=== PATIENT | female | born 1950 | race Caucasian/White ===

== ENCOUNTER 2016-03-09 10:02 | Inpatient (IN) | payer OTHER, MEDICARE ==
[~2016-03-09] VITALS: Ht 160 cm; Wt 90.3 kg
[2016-03-09] VITALS (9 sets, daily range): BP systolic 131–151; BP diastolic 71–91; PULSE 76–90; TEMP 36.2–36.6; O2SAT 92–96; Ht 160 cm; Wt 90.3 kg
[~2016-03-09 10:02] MED LIST: ALBU1NEB10 INH; BRVIN INH; CHOL100027 PO; FEXO1TAB46 PO; FORMCAP INH; NSNN50; OMEP20CA9 PO; OXGN; ROPI1TAB PO; TRIA37.5 PO; ZAFI1TAB10 PO; [UNRECOGNIZED DRUG - OTHER] INH
[2016-03-09] MEDS ORDERED: SODIUM CHLORIDE 0.9% 1000ML 1,000 ML IV STA (10:37)
[2016-03-09] MEDS ORDERED: SODIUM CHLORIDE 0.9% 1000ML 500 ML IV STA (10:37)
[2016-03-09] MEDS ORDERED: FLUT0.15 NAE (10:46)
[2016-03-09] MEDS ORDERED: MOME200A INH (10:47)
[2016-03-09] MEDS ORDERED: VNTHFA/IN INH (10:48)
[2016-03-09 10:51] LABS: BASO % 0.2 %; BASO ABS # 0.03 K/uL (0-0.2); COMPLETE YES; EOS % 0.2 %; HEMATOCRIT 37.9 % (37-47); IG% 0.3 %; LYMPH % 9.7 %; LYMPH ABS # 1.59 K/uL (1.2-3.4); MEAN CELL VOLUME 88.3 fL (80-100); MEAN CORPUSCULAR HEMOGLOBIN 30.1 pg (25-34); MEAN PLATELET VOLUME 9.4 fL (7.4-10.4); MONO % 8.3 %; NEUT % 81.3 %; PLATELET COUNT 196 K/uL (130-400); RED BLOOD COUNT 4.29 M/uL (4.2-5.4); WHITE BLOOD COUNT 16.47 K/uL (4.8-10.8)
[2016-03-09 10:58] LABS: BUN/CREATININE RATIO 10.5 (10-20); CALCIUM 8.9 mg/dl (8.5-10.1); CREATININE 0.88 mg/dl (0.60-1.20); POTASSIUM 3.8 mmol/L (3.5-5.1)
[2016-03-09] MEDS ORDERED: OPTIRAY 320 IV PRN (11:00)
[2016-03-09 11:01] LABS: ALB/GLOB RATIO 0.8 (0.9-2)
[2016-03-09 11:04] LABS: URINE APPEARANCE CLEAR (CLEAR); URINE BILIRUBIN NEG (NEG); URINE COLOR YELLOW; URINE EPITHELIAL CELL AUTO 20-30 /lpf (0-5); URINE NITRITE NEG (NEG); URINE PH 6.5 (4.5-7.5); URINE SPECIFIC GRAVITY 1.016 (1.000-1.030); UROBILINOGEN NEG (NEG); ZZUR CULT IF INDIC CLEAN CATCH YES
[2016-03-09 11:05] LABS: MANUAL MICROSCOPIC REQUIRED? NO; REVIEW REQ? NO
--- NOTE | 2016-03-09 11:45 | DIAGNOSTIC IMAGING REPORT ---
CT ABD/PELVIS IV CONTRAST ONLY CLINICAL HISTORY: Right lower quadrant abdominal pain COMPARISON STUDY: 02/14/2012 TECHNIQUE: Following the IV administration of 92 mL of Optiray-320, CT scan of the abdomen and pelvis was performed from the lung bases to the proximal femurs. Images are reviewed in the axial, sagittal, and coronal planes. IV contrast was administered without complication. CT DOSE: 888.28 mGy.cm FINDINGS: Lower chest: There is a 17 mm pulmonary nodule within the lingula. This nodule measuring 1 cm in January 2012. There are dependent atelectatic changes. Liver: There is a 26 mm hypodense lesion within the right hepatic lobe. This remains unchanged from January 2012 There is mild hepatic steatosis. Gallbladder: Unremarkable. Spleen: The spleen is the upper limits of normal in size measuring 11 cm. Pancreas: Unremarkable. Adrenal glands: Unremarkable. Kidneys: There is an 8 mm right renal hypodensity, likely representing a cyst. Bowel: There are no transition zones indicate bowel obstruction. There is an inflammatory process in the right lower quadrant with a suspected small abscess in the right adnexal region measuring approximately 3 cm. The sigmoid colon is adjacent to this and there are several diverticula present. There is mild stranding of the surrounding fat. The appendix also extensive this level. There is free intraperitoneal air. While likely representing ruptured diverticulitis, a ruptured appendicitis could appear similar. Peritoneum: There is no significant free fluid. There is free air is described above. Vasculature: The abdominal aorta is normal in course and caliber. Adenopathy: There is a mildly prominent lymph node at the level the right cardiophrenic angle unchanged the prior January 2012 study Pelvic viscera: The uterus is enlarged consistent with fibroids. At least one fibroid is partially calcified.. Skeletal structures: No destructive osseous lesions are seen. IMPRESSION: 1. Free intraperitoneal air consistent with a ruptured viscus 2. Right lower quadrant inflammatory process with a small abscess in the right adnexal region. While likely representing ruptured diverticulitis, a ruptured appendicitis could appear similar 3. Slowly growing 17 mm pulmonary nodule within the lingula. This nodule measured 1 cm January 2012. A slowly growing neoplasm is the diagnosis of exclusion 4. Multiple uterine fibroids 5. Surgical consultation is recommended 6. Stable 26 mm hypodensity within the right hepatic lobe. Electronically signed by: Tim Gar M.D. 03/09/2016 11:43 AM Dictated Date/Time: 03/09/2016 11:28 AM
[2016-03-09] MEDS ORDERED: ONDANSETRON INJ 2 MG/ML 2 ML VIAL IV STA (11:59)
[2016-03-09] MEDS ORDERED: HYDROmorphone INJ 2 MG/ML SYR/VIAL IV STA (11:59)
[2016-03-09] MEDS ORDERED: PIPERACILLIN/TAZOBACTAM 4.5 GM/100ML D5W IV STA (12:01)
[2016-03-09] MEDS ORDERED: DEXAMETHASONE SOD INJ 4 MG/ML VIAL ONE (13:09)
[2016-03-09] MEDS ORDERED: ONDANSETRON INJ 2 MG/ML 2 ML VIAL ONE (13:09)
[2016-03-09] MEDS ORDERED: GLYCOPYRROLATE INJ 0.2 MG/ML VIAL ONE (13:09)
[2016-03-09] MEDS ORDERED: ROCURONIUM BROMIDE 10 MG/ML 5 ML VIAL ONE ×2 (13:09→14:56)
[2016-03-09] MEDS ORDERED: FENTANYL CITRATE INJ 50 MCG/1 ML 2 ML VIAL ONE (13:09)
[2016-03-09] MEDS ORDERED: NEOSTIGMINE METHYLSULFATE 5 MG/5 ML SYR ONE (13:09)
[2016-03-09] MEDS ORDERED: PROPOFOL IV EMULSION 10 MG/ML 20 ML VIAL IV ONE (13:09)
[2016-03-09] MEDS ORDERED: MIDAZOLAM HCL 1 MG/ML 2ML VIAL ONE (13:09)
[2016-03-09] MEDS ORDERED: LIDOCAINE HCL 2% 2 ML VIAL (20MG/ML) ONE (13:09)
--- NOTE | 2016-03-09 13:13 | History and Physical ---
History & Physical Date & Time of Service: Mar 09, 2016 at 13:01 Chief Complaint: Right Lwr Abd. Pain Primary Care Physician: Marie Lundberg M.D. History of Present Illness Source: patient, family Carol Mccollum is a 65 year old female who presents to ER for 4 days abdominal pain, with nausea, no vomiting, the pain is located at RLQ, pt denies fever, no diarrhea, last BM today, pt had colonoscopy done last year. which was normal finding per -pt. pt denies chest pain, no SOB, Past Medical/Surgical History Medical Problems: (1) Asthma Status: Chronic (2) Hernia Status: Resolved (3) Hypertension Status: Chronic (4) Pneumonia Status: Resolved Family History FHx: lung disease Hypertension Social History Smoking Status: Never Smoker Smokeless Tobacco Use: No Alcohol Use: none Drug Use: none Marital Status: Occupational Status: retired Immunizations History of Influenza Vaccine: No History of Tetanus Vaccine?: No History of Pneumococcal: Yes Pneumococcal Date: Jan 25, 2010 History of Hepatitis B Vaccine: No Allergies Coded Allergies: Codeine (Verified Allergy, Unknown, UNKNOWN, 03/09/16) Fluticasone (Verified Allergy, Unknown, UNKNOWN, 03/09/16) Morphine (Verified Allergy, Unknown, UNKNOWN, 03/09/16) Salmeterol (Verified Allergy, Unknown, UNKNOWN, 03/09/16) Sulfa Drugs (Verified Allergy, Unknown, UNKNOWN, 03/09/16) Home Medications Scheduled Albuterol Hfa (Ventolin Hfa), 2-4 PUFFS INH Q6H Albuterol Sulf (Albuterol Sulfate 0.083% For Inh), 3 ML INH Q4HR PRN Arformoterol Tartrate (Brovana 15MCG/2ML Soln), 15 MCG INH BIDR Cholecalciferol (Vitamin D 1000 Unit), 1,000 INTER.UNIT PO DAILY Fexofenadine Hcl (Ghazala), 180 MG PO DAILY Fluticasone Propionate (Nasal) (Flonase Allergy Relief), 1 SPRAY ZONIA DAILY Mometasone Furoate-Formoterol (Dulera 200/5 Mcg), 2 PUFFS INH BID Omeprazole (Prilosec), 20 MG PO BID Zafirlukast (Accolate), 20 MG PO BID Review of Systems Constitutional: No chills, No fatigue, No fever, No problem reported, No sweats , No weakness, No weight loss Eyes: No diplopia, No discharge, No eye pain, No problem reported, No redness, No worsening of vision ENT: No dental problems, No hearing loss, No nasal symptoms, No problem reported, No sore throat, No tinnitus, No trouble swallowing, No unusual epistaxis Respiratory: No cough, No dyspnea at rest, No dyspnea on exertion, No hemoptysis, No problem reported, No shortness of breath, No sputum, No wheezing Cardiovascular: No PND, No chest pain, No claudication, No edema, No orthopnea , No palpitations, No problem reported Abdomen: + nausea, + pain Musculoskeletal: No calf pain, No joint pain, No muscle pain, No problem reported, No swelling Neurologic: No balance problems, No memory loss, No numbness/tingling, No paralysis, No problem reported, No vertigo, No weakness Psychiatric: No anhedonism, No anxiety, No depression symptoms, No insomnia, No problem reported, No substance abuse Hematologic / Lymphatic: No abnormal bleeding/bruising, No clotting problems, No night sweats, No problem reported, No swollen lymph nodes Physical Exam Vital Signs Date Time Temp Pulse Resp B/P Pulse Ox O2 Delivery O2 Flow Rate FiO2 03/09/16 11:54 80 18 134/68 95 Room Air 03/09/16 10:05 37.2 101 17 164/88 95 Room Air General Appearance: WD/WN, + mild distress Head: normocephalic Eyes: normal inspection, PERRL ENT: normal ENT inspection, hearing grossly normal Neck: supple, no adenopathy, thyroid normal, no JVD Respiratory/Chest: chest non-tender, lungs clear, normal breath sounds Cardiovascular: regular rate, rhythm, no edema, no gallop, no JVD, no murmur Abdomen/GI: + tenderness, + distended, + guarding Extremities/Musculoskelatal: normal inspection, no calf tenderness, normal capillary refill Neurologic/Psych: 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 II-XII nml as tested, no motor/sensory deficits Skin: normal color, warm/dry Diagnostics Laboratory Results Results Past 24 Hours Test 03/09/16 10:20 03/09/16 10:30 Range/Units White Blood Count 16.47 4.8-10.8 K/uL Red Blood Count 4.29 4.2-5.4 M/uL Hemoglobin 12.9 12.0-16.0 g/dL Hematocrit 37.9 37-47 % Mean Corpuscular Volume 88.3 80-100 fL Mean Corpuscular Hemoglobin 30.1 25-34 pg Mean Corpuscular Hemoglobin Concent 34.0 32-36 g/dl Platelet Count 196 130-400 K/uL Mean Platelet Volume 9.4 7.4-10.4 fL Neutrophils (%) (Auto) 81.3 % Lymphocytes (%) (Auto) 9.7 % Monocytes (%) (Auto) 8.3 % Eosinophils (%) (Auto) 0.2 % Basophils (%) (Auto) 0.2 % Neutrophils # (Auto) 13.40 1.4-6.5 K/uL Lymphocytes # (Auto) 1.59 1.2-3.4 K/uL Monocytes # (Auto) 1.37 0.11-0.59 K/uL Eosinophils # (Auto) 0.03 0-0.5 K/uL Basophils # (Auto) 0.03 0-0.2 K/uL RDW Standard Deviation 45.0 36.4-46.3 fL RDW Coefficient of Variation 13.9 11.5-14.5 % Immature Granulocyte % (Auto) 0.3 % Immature Granulocyte # (Auto) 0.05 0.00-0.02 K/uL Sodium Level 139 136-145 mmol/L Potassium Level 3.8 3.5-5.1 mmol/L Chloride Level 105 98-107 mmol/L Carbon Dioxide Level 23 21-32 mmol/L Anion Gap 11.0 3-11 mmol/L Blood Urea Nitrogen 9 7-18 mg/dl Creatinine 0.88 0.60-1.20 mg/dl Est Creatinine Clear Calc Drug Dose 69.8 ml/min Estimated GFR () 81.0 Estimated GFR (Non- 69.9 BUN/Creatinine Ratio 10.5 10-20 Random Glucose 162 70-99 mg/dl Calcium Level 8.9 8.5-10.1 mg/dl Total Bilirubin 0.8 0.2-1 mg/dl Aspartate Amino Transf (AST/SGOT) 10 15-37 U/L Alanine Aminotransferase (ALT/SGPT) 16 12-78 U/L Alkaline Phosphatase 104 45-117 U/L Total Protein 7.2 6.4-8.2 gm/dl Albumin 3.3 3.4-5.0 gm/dl Globulin 3.9 2.5-4.0 gm/dl Albumin/Globulin Ratio 0.8 0.9-2 Lipase 117 73-393 U/L Urine Color YELLOW Urine Appearance CLEAR CLEAR Urine pH 6.5 4.5-7.5 Urine Specific [place] 1.016 1.000-1.030 Urine Protein TRACE NEG Urine Glucose (UA) 1+ NEG Urine Ketones NEG NEG Urine Occult Blood TRACE NEG Urine Nitrite NEG NEG Urine Bilirubin NEG NEG Urine Urobilinogen NEG NEG Urine Leukocyte Esterase LARGE NEG Urine WBC (Auto) >30 0-5 /hpf Urine RBC (Auto) 0-4 0-4 /hpf Urine Hyaline Casts (Auto) 5-10 0-5 /lpf Urine Epithelial Cells (Auto) 20-30 0-5 /lpf Urine Bacteria (Auto) NEG NEG Microbiology Results 03/09/16 Urine Culture, Received Pending Diagnostic Radiology CT scan Abd + pelvis-IMPRESSION: 1. Free intraperitoneal air consistent with a ruptured viscus 2. Right lower quadrant inflammatory process with a small abscess in the right adnexal region. While likely representing ruptured diverticulitis, a ruptured appendicitis could appear similar 3. Slowly growing 17 mm pulmonary nodule within the lingula. This nodule measured 1 cm January 2012. A slowly growing neoplasm is the diagnosis of exclusion 4. Multiple uterine fibroids 5. Surgical consultation is recommended 6. Stable 26 mm hypodensity within the right hepatic lobe. Impression Assessment and Plan IMP intra- abdominal Free air, porforation of bowel ( diverticulitis)or ( appendicitis) Plan: I recommend to do exploratory laparostomy, possible bowel resection, stoma , D/W benefits, risks and alternatives of procedure, the risks- infection, bleeding, injury bowel, sepsis, multiple organs failure, DVT, [place], Stroke, , pt and her family member understood, they agree with the plan, I answered all questions, IV antibiotic, EKG, IV fluid.
--- NOTE | 2016-03-09 13:33 | History & Physical Bridge Note ---
H&P Re-Evaluation Bridge Note: I have examined the patient, reviewed the History & Physical and in the interval since the performance of the History & Physical I have noted the following changes of clinical significance: No changes noted
[2016-03-09] MEDS ORDERED: ATROPINE SULFATE 0.1 MG/ML 5ML SYR IV PRN (13:45)
[2016-03-09] MEDS ORDERED: ONDANSETRON INJ 2 MG/ML 2 ML VIAL IV PRN ×2 (13:45→17:15)
[2016-03-09] MEDS ORDERED: EpHEDrine SULFATE INJ 50 MG/ML AMP IV PRN (13:45)
[2016-03-09] MEDS ORDERED: PHENYLEPHRINE 100MCG/ML 5ML SYR IV PRN (13:45)
[2016-03-09] MEDS ORDERED: HYDROmorphone INJ 2 MG/ML SYR/VIAL ONE (14:45)
[2016-03-09] MEDS ORDERED: DOXYCYCLINE HYCLATE 100 MG in DEXTROSE 5% 100ML IV ONE (15:15)
--- NOTE | 2016-03-09 15:15 | EMERGENCY ROOM VISIT NOTE ---
History Report prepared by Gonzales: Lizz Hillman Under the Supervision of: Dr. Kenroy Way M.D. First contact with patient: 10:34 Chief Complaint: ABDOMINAL PAIN Stated Complaint: RIGHT LWR ABD. PAIN Nursing Triage Summary: PT c/o right lower abdominal pain and constipation x 3 days. Denies urinary symptoms, n/v. History of Present Illness The patient is a 65 year old female who presents to the Emergency Room with complaints of constant right lower quadrant abdominal pain starting about 3 days ago. She reports pain radiation to the right groin. The pain intermittently becomes sharp. At its worst, she rates a pain intensity of 8-9/ 10. She started having constipation a few days ago. She has been drinking Milk of Magnesia with relief. She also started having a fever of 102 degrees Fahrenheit this morning. The patient denies any back/flank pain, urinary symptoms, diarrhea, or any other complaints. She was referred to the Emergency Room by her PCP for concerns about appendicitis. She had similar symptoms about a year and a half ago. She has a history of hernia where her current pain is located. She thinks she has diverticula. Source of History: patient Onset: about 3 days ago Position: abdomen (RLQ) Symptom Intensity: 8-9/10 at its worst Quality: sharp Timing: constant Associated Symptoms: + fevers, No back pain, No diarrhea, No urinary symptoms Review of Systems See HPI for pertinent positives & negatives. A total of 10 systems reviewed and were otherwise negative. Past Medical & Surgical Medical Problems: (1) abdominal pain, ovary abscess on right (2) Asthma (3) Hernia (4) Hypertension (5) Pneumonia Family History FHx: lung disease Hypertension Social History Smoking Status: Never Smoker Alcohol Use: none Drug Use: none Marital Status: Housing Status: lives with family Occupation Status: retired Current/Historical Medications Scheduled Albuterol Hfa (Ventolin Hfa), 2-4 PUFFS INH Q6H Albuterol Sulf (Albuterol Sulfate 0.083% For Inh), 3 ML INH Q4HR PRN Arformoterol Tartrate (Brovana 15MCG/2ML Soln), 15 MCG INH BIDR Cholecalciferol (Vitamin D 1000 Unit), 1,000 INTER.UNIT PO DAILY Fexofenadine Hcl (Ghazala), 180 MG PO DAILY Fluticasone Propionate (Nasal) (Flonase Allergy Relief), 1 SPRAY ZONIA DAILY Mometasone Furoate-Formoterol (Dulera 200/5 Mcg), 2 PUFFS INH BID Omeprazole (Prilosec), 20 MG PO BID Zafirlukast (Accolate), 20 MG PO BID Allergies Coded Allergies: Codeine (Verified Allergy, Unknown, UNKNOWN, 03/09/16) Fluticasone (Verified Allergy, Unknown, UNKNOWN, 03/09/16) Morphine (Verified Allergy, Unknown, UNKNOWN, 03/09/16) Salmeterol (Verified Allergy, Unknown, UNKNOWN, 03/09/16) Sulfa Drugs (Verified Allergy, Unknown, UNKNOWN, 03/09/16) Physical Exam Vital Signs Date Time Temp Pulse Resp B/P Pulse Ox O2 Delivery O2 Flow Rate FiO2 03/09/16 13:16 37.7 93 18 135/74 96 03/09/16 11:54 80 18 134/68 95 Room Air 03/09/16 10:05 37.2 101 17 164/88 95 Room Air Physical Exam GENERAL: Patient is in no acute distress. HEENT: No acute trauma, normocephalic atraumatic, mucous membranes moist, no nasal congestion, no scleral icterus. NECK: No stridor, no adenopathy, no meningismus, trachea is midline. LUNGS: Clear to auscultation bilaterally, no wheeze, no rhonchi, breath sounds equal. HEART: Without murmurs gallops or rubs, regular rate and rhythm. ABDOMEN: Soft, moderate tenderness in the right lower quadrant and pelvis, bowel sounds positive, no hernias, no peritonitis. EXTREMITIES: No cyanosis or edema, full range of motion of all the joints without pain or difficulty, no signs for acute trauma. NEUROLOGIC: Oriented x 3, no acute motor or sensory deficits, no focal weakness. SKIN: No rash, no jaundice, no diaphoresis. Medical Decision & Procedures ER Provider Diagnostic Interpretation: CT results as stated below per my review and radiologist interpretation: CT ABD/PELVIS IV CONTRAST ONLY CLINICAL HISTORY: Right lower quadrant abdominal pain COMPARISON STUDY: 02/14/2012 TECHNIQUE: Following the IV administration of 92 mL of Optiray-320, CT scan of the abdomen and pelvis was performed from the lung bases to the proximal femurs. Images are reviewed in the axial, sagittal, and coronal planes. IV contrast was administered without complication. CT DOSE: 888.28 mGy.cm FINDINGS: Lower chest: There is a 17 mm pulmonary nodule within the lingula. This nodule measuring 1 cm in January 2012. There are dependent atelectatic changes. Liver: There is a 26 mm hypodense lesion within the right hepatic lobe. This remains unchanged from January 2012 There is mild hepatic steatosis. Gallbladder: Unremarkable. Spleen: The spleen is the upper limits of normal in size measuring 11 cm. Pancreas: Unremarkable. Adrenal glands: Unremarkable. Kidneys: There is an 8 mm right renal hypodensity, likely representing a cyst. Bowel: There are no transition zones indicate bowel obstruction. There is an inflammatory process in the right lower quadrant with a suspected small abscess in the right adnexal region measuring approximately 3 cm. The sigmoid colon is adjacent to this and there are several diverticula present. There is mild stranding of the surrounding fat. The appendix also extensive this level. There is free intraperitoneal air. While likely representing ruptured diverticulitis, a ruptured appendicitis could appear similar. Peritoneum: There is no significant free fluid. There is free air is described above. Vasculature: The abdominal aorta is normal in course and caliber. Adenopathy: There is a mildly prominent lymph node at the level the right cardiophrenic angle unchanged the prior January 2012 study Pelvic viscera: The uterus is enlarged consistent with fibroids. At least one fibroid is partially calcified.. Skeletal structures: No destructive osseous lesions are seen. IMPRESSION: 1. Free intraperitoneal air consistent with a ruptured viscus 2. Right lower quadrant inflammatory process with a small abscess in the right adnexal region. While likely representing ruptured diverticulitis, a ruptured appendicitis could appear similar 3. Slowly growing 17 mm pulmonary nodule within the lingula. This nodule measured 1 cm January 2012. A slowly growing neoplasm is the diagnosis of exclusion 4. Multiple uterine fibroids 5. Surgical consultation is recommended 6. Stable 26 mm hypodensity within the right hepatic lobe. Electronically signed by: Tim Gar M.D. 03/09/2016 11:43 AM Dictated Date/Time: 03/09/2016 11:28 AM Laboratory Results 03/09/16 10:20 Red Blood Count 4.29, Mean Corpuscular Volume 88.3, Mean Corpuscular Hemoglobin 30.1, Mean Corpuscular Hemoglobin Concent 34.0, Mean Platelet Volume 9.4, Neutrophils (%) (Auto) 81.3, Lymphocytes (%) (Auto) 9.7, Monocytes (%) (Auto) 8.3, Eosinophils (%) (Auto) 0.2, Basophils (%) (Auto) 0.2, Neutrophils # (Auto) 13.40, Lymphocytes # (Auto) 1.59, Monocytes # (Auto) 1.37, Eosinophils # (Auto) 0.03, Basophils # (Auto) 0.03 03/09/16 10:20 Test 03/09/16 10:20 03/09/16 10:30 White Blood Count 16.47 K/uL (4.8-10.8) Red Blood Count 4.29 M/uL (4.2-5.4) Hemoglobin 12.9 g/dL (12.0-16.0) Hematocrit 37.9 % (37-47) Mean Corpuscular Volume 88.3 fL (80-100) Mean Corpuscular Hemoglobin 30.1 pg (25-34) Mean Corpuscular Hemoglobin Concent 34.0 g/dl (32-36) Platelet Count 196 K/uL (130-400) Mean Platelet Volume 9.4 fL (7.4-10.4) Neutrophils (%) (Auto) 81.3 % Lymphocytes (%) (Auto) 9.7 % Monocytes (%) (Auto) 8.3 % Eosinophils (%) (Auto) 0.2 % Basophils (%) (Auto) 0.2 % Neutrophils # (Auto) 13.40 K/uL (1.4-6.5) Lymphocytes # (Auto) 1.59 K/uL (1.2-3.4) Monocytes # (Auto) 1.37 K/uL (0.11-0.59) Eosinophils # (Auto) 0.03 K/uL (0-0.5) Basophils # (Auto) 0.03 K/uL (0-0.2) RDW Standard Deviation 45.0 fL (36.4-46.3) RDW Coefficient of Variation 13.9 % (11.5-14.5) Immature Granulocyte % (Auto) 0.3 % Immature Granulocyte # (Auto) 0.05 K/uL (0.00-0.02) Anion Gap 11.0 mmol/L (3-11) Est Creatinine Clear Calc Drug Dose 69.8 ml/min Estimated GFR () 81.0 Estimated GFR (Non- 69.9 BUN/Creatinine Ratio 10.5 (10-20) Calcium Level 8.9 mg/dl (8.5-10.1) Total Bilirubin 0.8 mg/dl (0.2-1) Aspartate Amino Transf (AST/SGOT) 10 U/L (15-37) Alanine Aminotransferase (ALT/SGPT) 16 U/L (12-78) Alkaline Phosphatase 104 U/L (45-117) Total Protein 7.2 gm/dl (6.4-8.2) Albumin 3.3 gm/dl (3.4-5.0) Globulin 3.9 gm/dl (2.5-4.0) Albumin/Globulin Ratio 0.8 (0.9-2) Lipase 117 U/L (73-393) Urine Color YELLOW Urine Appearance CLEAR (CLEAR) Urine pH 6.5 (4.5-7.5) Urine Specific [place] 1.016 (1.000-1.030) Urine Protein TRACE (NEG) Urine Glucose (UA) 1+ (NEG) Urine Ketones NEG (NEG) Urine Occult Blood TRACE (NEG) Urine Nitrite NEG (NEG) Urine Bilirubin NEG (NEG) Urine Urobilinogen NEG (NEG) Urine Leukocyte Esterase LARGE (NEG) Urine WBC (Auto) >30 /hpf (0-5) Urine RBC (Auto) 0-4 /hpf (0-4) Urine Hyaline Casts (Auto) 5-10 /lpf (0-5) Urine Epithelial Cells (Auto) 20-30 /lpf (0-5) Urine Bacteria (Auto) NEG (NEG) Laboratory results reviewed by me. Medications Administered Medications (Trade) Dose Ordered Sig/Jovanny Route Start Time Stop Time Status Last Admin Dose Admin Sodium Chloride 500 ml @ 999 mls/hr Q31M STAT IV 03/09/16 10:37 03/09/16 11:07 DC 03/09/16 10:47 999 MLS/HR Sodium Chloride (Nss 1000ml) 1,000 ml @ 200 mls/hr Q5H STAT IV 03/09/16 10:37 03/09/16 14:59 DC 03/09/16 11:47 200 MLS/HR Hydromorphone HCl (Dilaudid Inj) 0.5 mg NOW STAT IV 03/09/16 11:59 03/09/16 12:01 DC 03/09/16 12:10 0.5 MG Ondansetron HCl (Zofran Inj) 4 mg NOW STAT IV 03/09/16 11:59 03/09/16 12:01 DC 03/09/16 12:09 4 MG Piperacillin Sod/ Tazobactam Sod (Zosyn Iv) 4.5 gm NOW STAT IV 03/09/16 12:01 03/09/16 12:02 DC 03/09/16 12:10 4.5 GM ED Course 1034: The patient was evaluated in room A02. A complete history and physical exam was performed. 1037: Sodium Chloride 1000 ml @ 200 mls/hr IV, Sodium Chloride 500 ml @ 999 mls/ hr IV 1159: The patient is requesting pain medication. Zofran Inj 4 mg IV, Dilaudid Inj 0.5 mg IV 1201: Zosyn IV 4.5 gm IV 1211: I discussed the patient's case with Dr. Rand, general surgeon with [facility]. He will evaluate the patient and give me his recommendations. 1250: I discussed the patient's case with Dr. Rand. He will take the patient to the OR. Medical Decision Differential diagnosis includes but is not limited to appendicitis or diverticulitis, musculoskeletal pain, hernia, biliary colic, renal colic, UTI, pyelonephritis. There is a moderate leukocytosis at around 16,000, this could be consistent with infection. No concerning anemia. No significant electrolyte abnormality, kidney failure, hepatitis or pancreatitis. Urinalysis shows possible infection versus contamination. Urine culture is pending. Abdominal and pelvis CT shows some free intraperitoneal air with inflammation/abscess in the right lower quadrant consistent with diverticulitis or even appendicitis. The patient received IV saline, IV Dilaudid, IV Zofran. She was given IV Zosyn. The patient is stable at present. I discussed my findings with her. I talked with the on-call surgeon. The patient is being taken to the operating room. Case management is aware. Consults Time Called: 1202 Consulting Physician: Dr. Rand, general surgeon with [facility] Returned Call: 1211 I discussed the patient's case with Dr. Rand, general surgeon with [facility]. He will evaluate the patient and give me his recommendations. Impression Primary Impression: Rupture of bowel Additional Impression: Intra-abdominal abscess Scribe Attestation The scribe's documentation has been prepared under my direction and personally reviewed by me in its entirety. I confirm that the note above accurately reflects all work, treatment, procedures, and medical decision making performed by me. Departure Information Dispostion Being Evaluated By Surgeon Referrals Marie Lundberg M.D. (PCP) Patient Instructions My [facility] Problem Qualifiers
--- NOTE | 2016-03-09 16:28 | [facility] Post Operative Brief Note ---
Immediate Operative Summary Operative Date Mar 09, 2016. Pre-Operative Diagnosis Intra- abdominal Free air, perforation of bowel, suspected diverticulitis or appendicitis Post-Operative Diagnosis RIGHT OVARIAN abscess Procedure(s) Performed Exploratory Laparotomy,RIGHT SALPINOOPHERECTOMY,APPENDECTOMY. Surgeon Dr. Rand Aviation Project Engineer Surgeon(s) Dr. Marquez Carlisle Estimated Blood Loss 50ml Findings right ovary abscess, appendicitis Specimens Microbiology #1: Intraabdominal abscess Routine C/S, Anerobic/Aerobic, Fungal/Yeast, Gram Stain Sent to lab routine at 1419 Permanent Specimens A:RIGHT OVARY AND TUBE B:APPENDIX Drains 10 mm JOSIE Anesthesia General Complication(s) None Disposition Recovery Room / PACU
[2016-03-09] MEDS: HYDROmorphone INJ 2 MG/ML SYR/VIAL IV PRN ×4 (16:47→17:02)
--- NOTE | 2016-03-09 17:48 | Anesthesiology Progress Note ---
Anesthesia Post Op Note Date & Time Mar 09, 2016 at 17:42 Vital Signs Pain Intensity: 3 Vital Signs Past 12 Hours Date Time Temp Pulse Resp B/P Pulse Ox O2 Delivery O2 Flow Rate FiO2 03/09/16 17:25 69 14 146/77 93 Nasal Cannula 4 03/09/16 17:15 76 14 146/74 92 Nasal Cannula 4 03/09/16 17:05 84 17 149/79 92 Nasal Cannula 4 03/09/16 16:55 84 16 154/75 91 Nasal Cannula 4 03/09/16 16:47 83 14 96 Diffusion Mask 11.0 03/09/16 16:45 87 17 161/83 97 Mask 10 03/09/16 16:35 87 17 174/105 93 Mask 10 03/09/16 16:27 36.0 91 17 155/76 89 Mask 10 03/09/16 13:16 37.7 93 18 135/74 96 03/09/16 11:54 80 18 134/68 95 Room Air 03/09/16 10:05 37.2 101 17 164/88 95 Room Air Notes Mental Status: alert / awake / arousable, participated in evaluation Pt Amnestic to Procedure: Yes Nausea / Vomiting: adequately controlled Pain: adequately controlled Airway Patency, RR, SpO2: stable & adequate BP & HR: stable & adequate Hydration State: stable & adequate Anesthetic Complications: no major complications apparent The patient is a 65 y/o female s/p exploratory laparotomy, right salpingoopherectomy and appendectomy. The patient has a history of COPD and her oxygen saturation on room air preoperatively was 95%. In recovery, she initially required a Duoneb treatment for wheezing and her oxygen saturation was only 90% on 10 L FM. She is more alert now and her oxygen saturation has improved to 94% on 4L NC. She has and abdominal binder in place, but is able to take 1750cc volume with the incentive spirometer. Her lungs are clear to auscultation bilaterally. She will be transferred to the floor where she will have continuous pulse oximetry.
[2016-03-09] MEDS ORDERED: PIPERACILL/TAZOBAC CONSULT ACTIVE PRN (18:45)
[2016-03-09] MEDS: D5W AND 1/2NSS + 20MEQ KCL 1,000 ML IV SCH (19:00)
[2016-03-09] MEDS ORDERED: METRONIDAZOLE / NSS 500 MG in PREMIXED NSS 0 ML IV SCH (19:00)
[2016-03-09] MEDS: METRONIDAZOLE / NSS 500 MG in PREMIXED NSS 100 ML IV SCH (19:04)
--- NOTE | 2016-03-09 19:10 | OPERATIVE REPORT ---
DATE OF OPERATION: 03/09/2016 PREOPERATIVE DIAGNOSES: Intra-abdominal free air, suspected perforation of bowel, suspected diverticulitis or appendicitis. POSTOPERATIVE DIAGNOSIS: Right ovarian cyst with right tubo-ovarian abscess. PROCEDURE PERFORMED: Right salpingo-oophorectomy. Please see Dr. Rand's note for his portion of the surgery. SURGEON: Dr. Carlisle. PROCESSING ENGINEER: Dr. Rnad. ESTIMATED BLOOD LOSS: 50 mL. OPERATIVE FINDINGS: As I scrubbed into the OR, the patient was already opened via vertical laparotomy incision. Upon exploration, it was noted that the right ovary and tube were severely inflamed, suspect a tubo-ovarian abscess. Dr. aRnd stated that there was pus that he irrigated prior to my arrival. There was a small defect in the bowel adjacent to it, which Dr. Rand did suture. Please see his notes for that portion. The right infundibulopelvic ligament was clamped with a Nallely clamp and suture ligated with 0 Vicryl suture, continued inferiorly through the uteroovarian ligament which was also clamped with Nallely clamp and suture ligated with 0 Vicryl suture. The specimen was then removed and sent to pathology. The lower pelvis was then copiously irrigated with warm saline solution. At this point, my portion of the procedure was found to be complete. Please see Dr. Rand's for the rest of his operative report. DRAINS: Quintanilla to gravity. ANESTHESIA: General. COMPLICATIONS: None. I attest to the content of the Intraoperative Record and any orders documented therein. Any exceptions are noted below. [email or web address]
[2016-03-09] MEDS: ALBUT/IPRATROP 3MG/0.5MG NEB 3 ML VIAL INH SCH ×2 (20:25→23:55)
[2016-03-09] MEDS: PIPERACILL/TAZOBAC IV 3.375 GM in DEXTROSE 5% 100ML 100 ML IV SCH (20:27)
--- NOTE | 2016-03-09 22:56 | OPERATIVE REPORT ---
DATE OF OPERATION: 03/09/2016 PREOPERATIVE DIAGNOSES: Intraabdominal free air, right lower quadrant pain. POSTOPERATIVE DIAGNOSIS: Right ovarian abscess. OPERATION: Right ovary and tube resection, appendectomy, exploratory laparotomy. SURGEON: Dr. Eulogio Rand. LUNG SPLITTER: Dr. Marquez Carlisle. ANESTHESIA: General. ESTIMATED BLOOD LOSS: About 50 mL IV FLUIDS: 1500 mL FINDINGS: Right ovarian abscess, early appendicitis. COMPLICATION: None. DRAIN: JOSIE drain x1. SPECIMEN: Abscess fluid sent for culture. INDICATION FOR THE PROCEDURE: This is a 65-year-old female who presented to ED with 4 days history of right lower quadrant pain with some nausea, no vomiting. The patient denied any fever. However, the patient had a CT scan showing free air in intraabdominal cavity and possible perforated bowel inflammation in the right lower quadrant. After I reviewed the patient in the ER, I decided to take the patient to the OR and do exploratory laparotomy for possible bowel obstruction, possible stoma. I did talk to the patient and the patient's family member about the benefit, the risk, alternate procedure. I indicated the risks may include but not limited such as bleeding, infection, sepsis, multiple organ failure, DVT, myocardial infarction, stroke, incisional hernia, abscess, even . They understand and the patient signed informed consent and I answered all questions. DETAILS OF PROCEDURE: We brought the patient to the OR, put the patient in sitting position. The patient received SCDs on bilateral legs to prevent DVT. Also, the patient received 2 grams Ancef IV for prophylactic antibiotic. The patient received general anesthesia without difficulty. The patient received Quintanilla catheter insertion. The abdomen was properly prepped and draped in routine sterile fashion. After a timeout, I made a medial incision and opened fascia, opened peritoneum under direct vision. Once we exposed, the abdomen showed normal findings of stomach, small-bowel, large-bowel, liver; however, we found the patient had an abscess on the right ovary. We opened the abscess, suctioned the fluid and sent the fluid for culture. The ovary and the tube were significantly inflamed. At this moment, I decided to call the ATTENDING PATHOLOGIST doctor, Dr. Marquez Carlisle who came in and decided to remove right side ovary and tube. He did the procedure, rechecked, no active bleeding. Also, I found the patient had some inflammation on the appendix. I decided to take out the appendix. I mobilized the appendix at its base, used Endo TAMMIE staple 45 mm, transected the base of the appendix, rechecked no active bleeding and no leaks, and specimen was sent to pathology. Then, we exposed the small-bowel and large-bowel, and no significant perforation and no leak at this moment. I decided to put one 10 mm JOSIE drain in the pelvic area. We used normal saline flush in the abdomen and suctioned all the fluid out. I used 2-0 silk to fix the JOSIE on the skin of abdominal wall and then we closed the abdominal fascial layer by using #1 PDS continuous running and closed subcutaneous layer by using 2-0 Vicryl, closed skin by using staple. We put the dressing on and the patient tolerated the procedure well. Urine output was 300 mL during the procedure. All instrument, needle and sponge count correct x2 at the end of the case. Specimen sent to pathology. After the procedure, I did talk to the patient and family member about the OR finding and procedure we did, they understand. The patient transferred to recovery room in stable condition. I attest to the content of the Intraoperative Record and any orders documented therein. Any exceptions are noted below. ADOLFO
[2016-03-10] VITALS (11 sets, daily range): BP systolic 116–152; BP diastolic 69–86; PULSE 82–103; TEMP 36.3–37.1; O2SAT 88–94
[2016-03-10] MEDS: ALBUT/IPRATROP 3MG/0.5MG NEB 3 ML VIAL INH SCH ×6 (02:02→23:41)
[2016-03-10] MEDS: METRONIDAZOLE / NSS 500 MG in PREMIXED NSS 100 ML IV SCH ×3 (03:10→19:12)
[2016-03-10] MEDS: PIPERACILL/TAZOBAC IV 3.375 GM in DEXTROSE 5% 100ML 100 ML IV SCH ×3 (04:18→21:24)
[2016-03-10] MEDS: D5W AND 1/2NSS + 20MEQ KCL 1,000 ML IV SCH ×2 (05:36→15:41)
[2016-03-10] MEDS ORDERED: CEFAZOLIN IV 2,000 MG/60 ML D5W IV ONE (06:00)
[2016-03-10 08:12] LABS: BASO % 0.1 %; BASO ABS # 0.01 K/uL (0-0.2); COMPLETE YES; HEMATOCRIT 35.4 % (37-47); IG% 0.2 %; LYMPH % 6.4 %; MEAN CELL VOLUME 87.2 fL (80-100); MEAN CORPUSCULAR HEMOGLOBIN 29.3 pg (25-34); MEAN CORPUSCULAR HGB CONC 33.6 g/dl (32-36); MEAN PLATELET VOLUME 9.4 fL (7.4-10.4); MONO % 7.6 %; NEUT % 85.7 %; PLATELET COUNT 202 K/uL (130-400); RED BLOOD COUNT 4.06 M/uL (4.2-5.4); WHITE BLOOD COUNT 13.97 K/uL (4.8-10.8)
[2016-03-10] MEDS: HYDROmorphone INJ 1 MG/ML SYR IV PRN ×3 (09:53→23:47)
--- NOTE | 2016-03-10 12:15 | Surgery Progress Note ---
Surgery Progress Note Date of Service Mar 10, 2016. Subjective Post OP Day: 1 + feeling well F/U S/P Right salpingo-oophorectomy, appendectomy, POD 1, pt is doing fine, no nausea, no vomiting, good control abdominal pain, not pass gas yet, JOSIE clear liquid, Objective Vital Signs: Date Time Temp Pulse Resp B/P Pulse Ox O2 Delivery O2 Flow Rate FiO2 03/10/16 11:30 88 18 93 Room Air 03/10/16 09:00 Room Air 03/10/16 08:40 90 Room Air 03/10/16 08:10 36.4 88 18 130/82 89 Room Air 03/10/16 07:52 103 18 90 Room Air 03/10/16 04:14 36.9 94 16 116/69 94 Nasal Cannula 2.0 03/09/16 23:55 84 18 96 Nasal Cannula 3.0 03/09/16 23:50 Nasal Cannula 3.0 03/09/16 23:14 36.5 90 20 131/77 92 Nasal Cannula 2.0 03/09/16 21:05 36.6 88 14 137/76 93 Nasal Cannula 4.0 03/09/16 20:10 80 18 96 Nasal Cannula 3.0 03/09/16 20:01 36.2 78 14 135/77 93 Nasal Cannula 4.0 03/09/16 19:05 36.2 80 16 137/71 92 Nasal Cannula 4.0 03/09/16 18:35 36.2 76 16 138/78 94 Nasal Cannula 4.0 03/09/16 18:05 94 Nasal Cannula 4.0 03/09/16 18:05 36.5 84 18 151/91 94 Nasal Cannula 4.0 03/09/16 18:05 93 Nasal Cannula 4.0 03/09/16 18:05 94 Nasal Cannula 4.0 03/09/16 17:55 70 14 129/64 93 Nasal Cannula 4 03/09/16 17:45 65 15 134/62 92 Nasal Cannula 4 03/09/16 17:35 36.9 75 18 146/76 92 Nasal Cannula 4 03/09/16 17:25 69 14 146/77 93 Nasal Cannula 4 03/09/16 17:15 76 14 146/74 92 Nasal Cannula 4 03/09/16 17:05 84 17 149/79 92 Nasal Cannula 4 03/09/16 16:55 84 16 154/75 91 Nasal Cannula 4 03/09/16 16:47 83 14 96 Diffusion Mask 11.0 03/09/16 16:45 87 17 161/83 97 Mask 10 03/09/16 16:35 87 17 174/105 93 Mask 10 03/09/16 16:27 36.0 91 17 155/76 89 Mask 10 03/09/16 13:16 37.7 93 18 135/74 96 General Appearance: WD/WN Head: normocephalic Neck: supple Respiratory/Chest: chest non-tender, lungs clear, normal breath sounds Cardiovascular: regular rate, rhythm, no edema, no gallop, no JVD, no murmur Abdomen: non distended, soft, + tenderness Incision(s): clean, dry, intact Extremities: normal range of motion, non-tender, normal inspection Laboratory Results: Results Past 24 Hours Test 03/10/16 07:46 Range/Units White Blood Count 13.97 4.8-10.8 K/uL Red Blood Count 4.06 4.2-5.4 M/uL Hemoglobin 11.9 12.0-16.0 g/dL Hematocrit 35.4 37-47 % Mean Corpuscular Volume 87.2 80-100 fL Mean Corpuscular Hemoglobin 29.3 25-34 pg Mean Corpuscular Hemoglobin Concent 33.6 32-36 g/dl Platelet Count 202 130-400 K/uL Mean Platelet Volume 9.4 7.4-10.4 fL Neutrophils (%) (Auto) 85.7 % Lymphocytes (%) (Auto) 6.4 % Monocytes (%) (Auto) 7.6 % Eosinophils (%) (Auto) 0.0 % Basophils (%) (Auto) 0.1 % Neutrophils # (Auto) 11.97 1.4-6.5 K/uL Lymphocytes # (Auto) 0.90 1.2-3.4 K/uL Monocytes # (Auto) 1.06 0.11-0.59 K/uL Eosinophils # (Auto) 0.00 0-0.5 K/uL Basophils # (Auto) 0.01 0-0.2 K/uL RDW Standard Deviation 43.9 36.4-46.3 fL RDW Coefficient of Variation 13.7 11.5-14.5 % Immature Granulocyte % (Auto) 0.2 % Immature Granulocyte # (Auto) 0.03 0.00-0.02 K/uL Microbiology Results 03/09/16 Gram Stain - Final, Resulted 03/09/16 Bacterial Culture - Preliminary, Resulted Gram Negative Bacilli Gram Negative Bacilli#2 Assessment & Plan IMP S/P Right salpingo-oophorectomy, appendectomy POD1, pt is doing fine, out of bed, with paraprofessional education assistant resume home meds, SCD on repeat labs in AM I update information to pt and family members, they understood, I answered all questions,
[2016-03-10] MEDS ORDERED: NURSING VERBAL MED ORDER ONE (12:45)
[2016-03-10] MEDS ORDERED: PANTOprazole INJ 40 MG in SYRINGE 0 ML IV ONE (13:30)
[2016-03-10] MEDS ORDERED: ALBUTEROL HFA INHALER 8.5 GM INH PRN (13:30)
[2016-03-10] MEDS: ARFORMOTEROL TART 15MCG/2ML VIAL INH SCH (20:40)
[2016-03-10] MEDS ORDERED: MOMETASONE FUROATE-FORMOTEROL (DULERA) 200mcg/5mcg per inh INH SCH (21:00)
[2016-03-10] MEDS: PANTOprazole SOD 40 MG TAB PO SCH (21:00)
[2016-03-10] MEDS: MOMETASONE FUROATE-FORMOTEROL (DULERA) 200mcg/5mcg per inh INH SCH (21:23)
[2016-03-10] MEDS: ZAFIRLUKAST TAB 20 MG TAB PO SCH (21:23)
[2016-03-11] MEDS: D5W AND 1/2NSS + 20MEQ KCL 1,000 ML IV SCH ×3 (01:15→20:37)
[2016-03-11] MEDS: ALBUT/IPRATROP 3MG/0.5MG NEB 3 ML VIAL INH SCH ×3 (01:49→12:00)
[2016-03-11] MEDS: METRONIDAZOLE / NSS 500 MG in PREMIXED NSS 100 ML IV SCH ×3 (02:27→19:30)
[2016-03-11] MEDS: PIPERACILL/TAZOBAC IV 3.375 GM in DEXTROSE 5% 100ML 100 ML IV SCH ×3 (03:43→20:36)
[2016-03-11 06:34] LABS: BASO % 0.2 %; BASO ABS # 0.02 K/uL (0-0.2); COMPLETE YES; EOS % 2.1 %; HEMATOCRIT 36.1 % (37-47); IG% 0.4 %; LYMPH % 15.9 %; LYMPH ABS # 1.69 K/uL (1.2-3.4); MEAN CELL VOLUME 89.1 fL (80-100); MEAN CORPUSCULAR HEMOGLOBIN 29.1 pg (25-34); MEAN CORPUSCULAR HGB CONC 32.7 g/dl (32-36); MEAN PLATELET VOLUME 9.5 fL (7.4-10.4); MONO % 8.6 %; NEUT % 72.8 %; PLATELET COUNT 213 K/uL (130-400); RED BLOOD COUNT 4.05 M/uL (4.2-5.4); WHITE BLOOD COUNT 10.62 K/uL (4.8-10.8)
[2016-03-11 07:03] LABS: BUN/CREATININE RATIO 14.3 (10-20); CALCIUM 8.4 mg/dl (8.5-10.1); CREATININE 0.88 mg/dl (0.60-1.20); POTASSIUM 3.9 mmol/L (3.5-5.1)
[2016-03-11 07:05] LABS: ALB/GLOB RATIO 0.8 (0.9-2)
[2016-03-11 07:16] VITALS: BP 155/85; PULSE 85; TEMP 36.9; O2SAT 90
[2016-03-11] MEDS ORDERED: BISACODYL 10 MG SUPP PR STA (07:50)
--- NOTE | 2016-03-11 07:55 | Surgery Progress Note ---
Surgery Progress Note Date of Service Mar 11, 2016. Subjective Post OP Day: 2 + feeling well pt is doing better, no N/V, no fever, not pass gas yet, Objective Vital Signs: Date Time Temp Pulse Resp B/P Pulse Ox O2 Delivery O2 Flow Rate FiO2 03/11/16 07:16 36.9 85 16 155/85 90 Room Air 03/10/16 23:41 86 18 93 Room Air 03/10/16 23:40 Nasal Cannula 2.0 03/10/16 23:29 37.1 85 20 152/80 88 Room Air 03/10/16 20:41 85 18 90 Room Air 03/10/16 16:50 36.8 82 18 138/86 90 Room Air 03/10/16 15:40 Room Air 03/10/16 14:31 88 18 93 Room Air 03/10/16 13:30 36.3 90 18 130/86 88 Room Air 03/10/16 11:30 88 18 93 Room Air 03/10/16 09:00 Room Air 03/10/16 08:40 90 Room Air 03/10/16 08:10 36.4 88 18 130/82 89 Room Air Physical Exam: JOSIE drainage General Appearance: WD/WN Head: normocephalic Neck: supple, no adenopathy Respiratory/Chest: chest non-tender, lungs clear, normal breath sounds Cardiovascular: regular rate, rhythm, no edema, no gallop, no JVD Abdomen: normal bowel sounds, non tender, soft Incision(s): clean, dry, intact Extremities: normal range of motion, non-tender, normal inspection Laboratory Results: Results Past 24 Hours Test 03/11/16 06:14 Range/Units White Blood Count 10.62 4.8-10.8 K/uL Red Blood Count 4.05 4.2-5.4 M/uL Hemoglobin 11.8 12.0-16.0 g/dL Hematocrit 36.1 37-47 % Mean Corpuscular Volume 89.1 80-100 fL Mean Corpuscular Hemoglobin 29.1 25-34 pg Mean Corpuscular Hemoglobin Concent 32.7 32-36 g/dl Platelet Count 213 130-400 K/uL Mean Platelet Volume 9.5 7.4-10.4 fL Neutrophils (%) (Auto) 72.8 % Lymphocytes (%) (Auto) 15.9 % Monocytes (%) (Auto) 8.6 % Eosinophils (%) (Auto) 2.1 % Basophils (%) (Auto) 0.2 % Neutrophils # (Auto) 7.74 1.4-6.5 K/uL Lymphocytes # (Auto) 1.69 1.2-3.4 K/uL Monocytes # (Auto) 0.91 0.11-0.59 K/uL Eosinophils # (Auto) 0.22 0-0.5 K/uL Basophils # (Auto) 0.02 0-0.2 K/uL RDW Standard Deviation 45.9 36.4-46.3 fL RDW Coefficient of Variation 13.9 11.5-14.5 % Immature Granulocyte % (Auto) 0.4 % Immature Granulocyte # (Auto) 0.04 0.00-0.02 K/uL Sodium Level 140 136-145 mmol/L Potassium Level 3.9 3.5-5.1 mmol/L Chloride Level 106 98-107 mmol/L Carbon Dioxide Level 24 21-32 mmol/L Anion Gap 10.0 3-11 mmol/L Blood Urea Nitrogen 13 7-18 mg/dl Creatinine 0.88 0.60-1.20 mg/dl Est Creatinine Clear Calc Drug Dose 69.8 ml/min Estimated GFR () 81.0 Estimated GFR (Non- 69.9 BUN/Creatinine Ratio 14.3 10-20 Random Glucose 200 70-99 mg/dl Calcium Level 8.4 8.5-10.1 mg/dl Total Bilirubin 0.4 0.2-1 mg/dl Aspartate Amino Transf (AST/SGOT) 5 15-37 U/L Alanine Aminotransferase (ALT/SGPT) 15 12-78 U/L Alkaline Phosphatase 85 45-117 U/L Total Protein 6.6 6.4-8.2 gm/dl Albumin 2.9 3.4-5.0 gm/dl Globulin 3.7 2.5-4.0 gm/dl Albumin/Globulin Ratio 0.8 0.9-2 Assessment & Plan IMP S/P Right salpingo-oophorectomy, appendectomy POD1, pt is doing fine, D/C NGT out of bed, with chemist assistant resume home meds, SCD on dulcolax 10mg MD will F/U IMP S/P Right salpingo-oophorectomy, appendectomy POD1, pt is doing fine, out of bed, with chemist assistant resume home meds, SCD on repeat labs in AM I update information to pt and family members, they understood, I answered all questions,
[2016-03-11] MEDS: ARFORMOTEROL TART 15MCG/2ML VIAL INH SCH (08:00)
[2016-03-11] MEDS: FLUTICASONE PROPIONATE NA SPR 16 GM BTL SCH (09:00)
[2016-03-11] MEDS: ZAFIRLUKAST TAB 20 MG TAB PO SCH ×2 (09:09→20:36)
[2016-03-11] MEDS: CHOLECALCIFEROL 1000 INTER.UNIT TAB PO SCH (09:09)
[2016-03-11] MEDS: PANTOprazole SOD 40 MG TAB PO SCH ×2 (09:09→20:37)
[2016-03-11] MEDS: FEXOFENADINE HCL 180 MG TAB PO SCH (09:09)
[2016-03-11] MEDS: MOMETASONE FUROATE-FORMOTEROL (DULERA) 200mcg/5mcg per inh INH SCH ×2 (09:10→20:36)
[2016-03-11] MEDS ORDERED: NURSING VERBAL MED ORDER ONE ×2 (09:15→15:00)
[2016-03-11] MEDS: HYDROmorphone INJ 1 MG/ML SYR IV PRN ×3 (09:15→23:59)
[2016-03-11 14:56] VITALS: BP 134/75; PULSE 78; TEMP 36.9; O2SAT 90
[2016-03-11] MEDS: IPRATROPIUM BROMIDE/ALBUTEROL respimat INH INH SCH ×3 (16:42→23:53)
[2016-03-11] MEDS: DOCUSATE SODIUM 100 MG CAP PO SCH (20:37)
[2016-03-11 22:50] VITALS: BP 135/79; PULSE 76; TEMP 37.1; O2SAT 88
[2016-03-11 22:54] VITALS: O2SAT 92
[2016-03-12] MEDS: METRONIDAZOLE / NSS 500 MG in PREMIXED NSS 100 ML IV SCH ×3 (02:30→19:06)
[2016-03-12] MEDS: IPRATROPIUM BROMIDE/ALBUTEROL respimat INH INH SCH ×5 (03:47→19:47)
[2016-03-12] MEDS: PIPERACILL/TAZOBAC IV 3.375 GM in DEXTROSE 5% 100ML 100 ML IV SCH ×3 (03:47→19:47)
[2016-03-12] MEDS: HYDROmorphone INJ 1 MG/ML SYR IV PRN ×3 (05:27→21:28)
[2016-03-12] MEDS: D5W AND 1/2NSS + 20MEQ KCL 1,000 ML IV SCH ×2 (06:25→16:41)
[2016-03-12 06:38] LABS: CREATININE 0.84 mg/dl (0.60-1.20)
[2016-03-12 07:02] VITALS: BP 120/68; PULSE 67; TEMP 36.9; O2SAT 90
--- NOTE | 2016-03-12 07:42 | Anesthesiology Progress Note ---
Anesthesia Post Op Note Date & Time Mar 12, 2016 at 07:42 Vital Signs Pain Intensity: 7.0 Vital Signs Past 12 Hours Date Time Temp Pulse Resp B/P Pulse Ox O2 Delivery O2 Flow Rate FiO2 03/12/16 07:02 36.9 67 16 120/68 90 Room Air 03/12/16 00:02 CPAP 03/11/16 22:54 92 CPAP 03/11/16 22:50 37.1 76 16 135/79 88 Room Air Notes Mental Status: alert / awake / arousable, participated in evaluation Pt Amnestic to Procedure: Yes Nausea / Vomiting: adequately controlled Pain: adequately controlled Airway Patency, RR, SpO2: stable & adequate BP & HR: stable & adequate Hydration State: stable & adequate Anesthetic Complications: no major complications apparent
[2016-03-12] MEDS: FLUTICASONE PROPIONATE NA SPR 16 GM BTL SCH (09:00)
[2016-03-12] MEDS: MOMETASONE FUROATE-FORMOTEROL (DULERA) 200mcg/5mcg per inh INH SCH ×2 (10:12→20:33)
[2016-03-12] MEDS: CHOLECALCIFEROL 1000 INTER.UNIT TAB PO SCH (10:14)
[2016-03-12] MEDS: PANTOprazole SOD 40 MG TAB PO SCH ×2 (10:14→20:34)
[2016-03-12] MEDS: ZAFIRLUKAST TAB 20 MG TAB PO SCH ×2 (10:14→20:34)
[2016-03-12] MEDS: FEXOFENADINE HCL 180 MG TAB PO SCH (10:14)
[2016-03-12] MEDS: DOCUSATE SODIUM 100 MG CAP PO SCH ×2 (10:17→20:34)
--- NOTE | 2016-03-12 12:35 | Surgery Progress Note ---
Surgery Progress Note Date of Service Mar 12, 2016. Subjective Post OP Day: 3 + feeling well passed BM, pt is doing fine, no N/V. no fever. Objective Vital Signs: Date Time Temp Pulse Resp B/P Pulse Ox O2 Delivery O2 Flow Rate FiO2 03/12/16 07:02 36.9 67 16 120/68 90 Room Air 03/12/16 00:02 CPAP 03/11/16 22:54 92 CPAP 03/11/16 22:50 37.1 76 16 135/79 88 Room Air 03/11/16 16:30 Room Air 03/11/16 14:56 36.9 78 16 134/75 90 Room Air General Appearance: WD/WN Head: normocephalic Neck: supple Respiratory/Chest: chest non-tender, lungs clear Cardiovascular: regular rate, rhythm, no edema, no gallop, no JVD Abdomen: normal bowel sounds, non tender, non distended, soft Incision(s): clean, dry, intact Extremities: normal range of motion, non-tender Laboratory Results: Results Past 24 Hours Test 03/12/16 05:41 Range/Units Creatinine 0.84 0.60-1.20 mg/dl Est Creatinine Clear Calc Drug Dose 73.1 ml/min Estimated GFR () 85.7 Estimated GFR (Non- 74.0 Assessment & Plan IMP S/P Right salpingo-oophorectomy, appendectomy POD3, pt is doing fine, D/C NGT out of bed, with certified nursing assistant instructor resume home meds, SCD on will F/U may pull Martir tomorrow, May D/C home tomorrow, regular diet IMP S/P Right salpingo-oophorectomy, appendectomy POD1, pt is doing fine, D/C NGT out of bed, with certified nursing assistant instructor resume home meds, SCD on dulcolax 10mg MI will F/U
--- NOTE | 2016-03-12 13:58 | Clinical Documentation Query ---
QUERY 1 OF [address] RIVERA, In your clinical opinion is this patient being managed for: ( ) Early Sepsis in the setting of R ovarian cyst and appendicitis ( ) Other explanation of clinical findings (Please Explain) ( ) Unable to determine (Please Define) ( ) Need to Discuss ( ) Not Agree The medical record reflects the following clinical findings, treatment, and risk factors. Clinical Indicators: 65 yo female presenting with constant RLQ abd pain. WBC 16.47, vital signs 37.7-91-17, 155/76, glucose 162, reported a fever of 102 at home. Abscess culture with E coli. Operative record from OBGYN indicates a small defect in the bowel. Treatment: IV fluid bolus then continuous, IV flagyl, IV zosyn, emergent OR Risk Factors: R ovarian cyst, appendicitis Please clarify and document your clinical opinion in the progress notes and discharge summary. Terms such as "probable", "suspected", "likely", "questionable", "possible", or "still to be ruled out" are acceptable. IF IN AGREEMENT, YOU MUST DOCUMENT ABOVE DIAGNOSTIC STATEMENT IN DAILY PROGRESS NOTES AND DISCHARGE SUMMARY. This document is not part of the patient's record. QUERY 2 OF 2 In your clinical opinion is this patient being managed for: ( ) Localized (acute) peritonitis ( ) Other explanation of clinical findings (Please Explain) ( ) Unable to determine (Please Define) ( ) Need to Discuss ( ) Not Agree The medical record reflects the following clinical findings, treatment, and risk factors. Clinical Indicators: 65 yo female presenting with constant RLQ abd pain. Reportedly had fever of 102 morning of ER presentation. WBC 16.47, glucose 162. CT abd indicated an inflammatory RLQ process. Treatment: IV fluid bolus then continuous, IV flagyl, IV zosyn, emergent OR Risk Factors:abscess on R ovary, appendicitis Please clarify and document your clinical opinion in the progress notes and discharge summary. Terms such as "probable", "suspected", "likely", "questionable", "possible", or "still to be ruled out" are acceptable. IF IN AGREEMENT, YOU MUST DOCUMENT ABOVE DIAGNOSTIC STATEMENT IN DAILY PROGRESS NOTES AND DISCHARGE SUMMARY. This document is not part of the patient's record. Thank You, Elissa Alba RN [phone]
[2016-03-12 15:43] VITALS: BP 127/74; PULSE 65; TEMP 37.3; O2SAT 94
[2016-03-12 23:10] VITALS: BP 122/72; PULSE 71; TEMP 36.9; O2SAT 91
[2016-03-13] MEDS: IPRATROPIUM BROMIDE/ALBUTEROL respimat INH INH SCH ×4 (00:13→12:36)
[2016-03-13] MEDS: METRONIDAZOLE / NSS 500 MG in PREMIXED NSS 100 ML IV SCH ×2 (02:46→11:03)
[2016-03-13] MEDS: D5W AND 1/2NSS + 20MEQ KCL 1,000 ML IV SCH ×2 (02:47→12:37)
[2016-03-13] MEDS: HYDROmorphone INJ 1 MG/ML SYR IV PRN ×2 (02:55→14:07)
[2016-03-13] MEDS: PIPERACILL/TAZOBAC IV 3.375 GM in DEXTROSE 5% 100ML 100 ML IV SCH ×2 (04:05→12:36)
[2016-03-13 07:08] LABS: CREATININE 0.81 mg/dl (0.60-1.20)
[2016-03-13 07:11] VITALS: BP 145/76; PULSE 69; TEMP 36.9; O2SAT 90
[2016-03-13] MEDS: FLUTICASONE PROPIONATE NA SPR 16 GM BTL SCH (09:00)
[2016-03-13] MEDS: MOMETASONE FUROATE-FORMOTEROL (DULERA) 200mcg/5mcg per inh INH SCH (09:27)
[2016-03-13] MEDS: DOCUSATE SODIUM 100 MG CAP PO SCH (09:27)
[2016-03-13] MEDS: ZAFIRLUKAST TAB 20 MG TAB PO SCH (09:27)
[2016-03-13] MEDS: FEXOFENADINE HCL 180 MG TAB PO SCH (09:28)
[2016-03-13] MEDS: CHOLECALCIFEROL 1000 INTER.UNIT TAB PO SCH (09:28)
[2016-03-13] MEDS: PANTOprazole SOD 40 MG TAB PO SCH (09:29)
[2016-03-13 15:10] VITALS: BP 130/72; PULSE 73; TEMP 36.8; O2SAT 92
--- NOTE | 2016-03-13 15:10 | Surgery Progress Note ---
Surgery Progress Note Date of Service Mar 13, 2016. Subjective Post OP Day: 4 + feeling well F/U S/P resection right ovary abscess and appendectomy, local peritonitis, pt is doing fine, she tolerated diet, passed BM, no nausea, no vomiting, no fever. pt wants to go home, pulled out JOSIE, clear minimal, Objective Vital Signs: Date Time Temp Pulse Resp B/P Pulse Ox O2 Delivery O2 Flow Rate FiO2 03/13/16 07:45 Room Air 03/13/16 07:11 36.9 69 16 145/76 90 Room Air 03/13/16 00:16 CPAP 03/12/16 23:10 36.9 71 14 122/72 91 Room Air 03/12/16 15:45 Room Air CPAP 03/12/16 15:43 37.3 65 17 127/74 94 Room Air General Appearance: WD/WN Head: normocephalic Neck: supple, no adenopathy Respiratory/Chest: chest non-tender, lungs clear, normal breath sounds Cardiovascular: regular rate, rhythm, no edema, no gallop, no JVD Abdomen: normal bowel sounds, non tender, non distended, soft Incision(s): clean, dry, intact Extremities: normal range of motion, non-tender, normal inspection Laboratory Results: Results Past 24 Hours Test 03/13/16 05:45 Range/Units Creatinine 0.81 0.60-1.20 mg/dl Est Creatinine Clear Calc Drug Dose 75.8 ml/min Estimated GFR () 89.6 Estimated GFR (Non- 77.3 Assessment & Plan IMP S/P Right salpingo-oophorectomy, appendectomy POD4, pt is doing fine, out of bed, with certified first assistant resume home meds SCD on D/C home today I gave pt post-op care instruction, F/U 1 week, , IMP S/P Right salpingo-oophorectomy, appendectomy POD3, pt is doing fine, D/C NGT out of bed, with certified first assistant resume home meds, SCD on will F/U may pull Josie tomorrow, May D/C home tomorrow,
[2016-03-13] MEDS ORDERED: CIPR1TAB10 PO (15:13)
[2016-03-13] MEDS ORDERED: OXYC-57 PO (15:14)
[2016-03-13 15:29] VITALS: BP 130/72; PULSE 73; TEMP 36.8; O2SAT 92
--- NOTE | 2016-03-13 17:00 | DISCHARGE SUMMARY ---
DATE OF DISCHARGE: 03/13/2016 ADMITTING DIAGNOSES: Acute abdominal pain. DISCHARGE DIAGNOSIS: Right ovarian abscess. OPERATION: Laparoscopic appendectomy, resection of ovary. SURGEON: Dr. Eulogio Rand and Dr. Marquez Carlisle. DETAILS OF DISCHARGE SUMMARY: This is a 65-year-old female who presented to the ED with right lower quadrant pain. The patient had a CT scan showing possible early appendicitis. We took the patient to the OR and in the OR we found the patient had right ovarian abscess. We did collapse the abscess however significant inflammation and infection on the right ovary. We asked [employer] doctor, Dr. Carlisle, to come in and he did laparoscopic resection of the right ovary. I did the appendectomy through the laparoscopy. The patient tolerated the procedure well. After the procedure the patient was admitted to the hospital, given IV fluid and IV antibiotic for low cause of peritonitis, possible early sepsis. Today is postop day 4 and the patient doing fine. No nausea, no vomiting, good comfort pain. The patient passing gas, passing stool and the patient wants to go home today. PHYSICAL EXAMINATION: VITAL SIGNS: Temperature is 36.8, heart rate 73, respiratory rate 16, blood pressure is 130/72, O2 saturation 92% on room air. GENERAL: The patient is alert, awake, oriented x3. No distress. HEAD, EYES, EARS, NOSE, AND THROAT: With normal limitation. NEUROLOGIC: Intact. NECK: No JVD. CHEST: Bilateral lung sounds clear. HEART: Normal S1, S2. No murmur. ABDOMEN: Soft, no tenderness. Bowel sounds positive. No distention. The JOSIE drainage is clear fluid, minimal. We pulled out the JOSIE today. EXTREMITIES: No edema. PLAN: The patient wants to go home today. Gave the patient the postoperative care instructions. The patient understands. We will follow up the patient in 1 week.
--- NOTE | 2016-03-19 06:38 | EDITING REQUIRED CODING QUERY ---
SEPSIS To promote full compliance with coding requirements relating to patient care, physician participation is requested in all cases of oil well service operator uncertainty. Please assist us with the question(s) below: In responding to this query, please exercise your independent professional judgement. The fact that a question is asked does not imply that any particular answer is desired or expected. We appreciate your clarification on this issue. Throughout the medical record, you have clearly documented a localized infection and your patient has clinical evidence of a generalized sepsis or severe sepsis. The term urosepsis is a nonspecific entity and is coded as an UTI. If the patient has sepsis, severe sepsis, from an urinary source or some other source, please clarify in your response below. The medical record reflects the following clinical findings: Patient admitted with tubo-ovarian abscess and local peritonitis. Thank you! WERO Pena CCS ( )Bacteremia (Nonspecific laboratory finding of bacteria in the blood) Specify Organism (X ) Present on Admission( ) Not present on admission ( ) Unable to clinically determine ( ) Septicemia (Systemic disease associated with the presence of pathogenic microorganisms in the blood): Specify Organism ( ) Present on Admission( ) Not present on admission( ) Unable to clinically determine ( ) Sepsis Specify Organism Specify Associated Condition/Diagnosis ( ) Present on Admission( ) Not present on admission ( ) Unable to clinically determine ( ) Severe Sepsis (Sepsis associated with acute organ dysfunction) Specify Organism Specify Associated Condition/Diagnosis ( ) Present on Admission ( ) Not present on admission( ) Unable to clinically determine ( ) Septic Shock (Severe sepsis with acute circulatory failure, unexplained by other causes) ( ) Present on Admission( ) Not present on admission( ) Unable to clinically determine ( ) Other, patient has:
== END 2016-03-13 16:15 | disposition home or self-care (01) | DRG 339 ==
LOC: ENRESERVTM → ENRESERVDT → C.EDB 10:06 → C.MSN 17:17
PROVIDERS: ADMIT Surgery; ATTEND Surgery
PROC: 0UT00ZZ Resection of Right Ovary, Open Approach (ICD-10-PCS; principal; 2016-03-09 09:15)
PROC: 0UT50ZZ Resection of Right Fallopian Tube, Open Approach (ICD-10-PCS; principal; 2016-03-09 09:15)
PROC: 0DTJ0ZZ Resection of Appendix, Open Approach (ICD-10-PCS; 2016-03-09 09:15)
DX: K35.3 Acute appendicitis with localized peritonitis (principal); R78.81 Bacteremia; J44.9 Chronic obstructive pulmonary disease, unspecified; N70.93 Salpingitis and oophoritis, unspecified; N83.201 Unspecified ovarian cyst, right side; I10 Essential (primary) hypertension; Z88.2 Allergy status to sulfonamides